=== PATIENT | male | born 1980 | race Two or more races ===

== ENCOUNTER 2020-12-26 11:52 | Emergency (ER) | payer MEDICAID ==
[~2020-12-26] VITALS: Ht 167.6 cm; Wt 81.6 kg
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
[2020-12-26] MEDS ORDERED: ONDANSETRON ODT 4 MG TAB.RAPDIS SL ONE (12:30)
[2020-12-26] MEDS ORDERED: KETOROLAC TROMETHAMINE 60 MG INJ IM ONE ×2 (12:30→12:58)
[2020-12-26] MEDS ORDERED: ONDANSETRON ODT 4 MG TAB.RAPDIS ONE (12:57)
[2020-12-26] MEDS ORDERED: CYCL5TAB PO (13:29)
[2020-12-26] MEDS ORDERED: NAPR-1164 PO (13:29)
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
--- NOTE | 2020-12-26 13:50 | NUR ---
Pain down to 4-5/10, nausea resolved. Gave pt RX and d/c instructions, pt verbalized understanding.
== END 2020-12-26 14:00 | disposition home or self-care (01) ==
LOC: ER 11:52
DX: M79.18 Myalgia, other site (principal); R51.9 Headache, unspecified
CPT/HCPCS: 96372; 99283; J1885; A4663; Q0162